=== PATIENT | male | born 1980 | race African-American/Black ===

== ENCOUNTER 2017-07-21 06:23 | Day surgery (SDC) | payer MEDICAID ==
[~2017-07-21] VITALS: Ht 185.4 cm; Wt 102.5 kg
[~2017-07-21 06:23] MED LIST: ALDACTAZIDE 25/25 PO; AMLODIPINE5 MG PO; BENADRYL 50MG C50 MG PO; CLARITIN10 M1 PO; HYDROCHLOR12.5 MG/CA PO; HYZAAR1 TA1 PO; MEDDOSEPAK PO; PEPCID20 MG PO
[2017-07-21 09:32] VITALS: BP 125/73
[2017-07-21] MEDS ORDERED: MOTRIN800 MG PO (09:45)
[2017-07-21] MEDS ORDERED: PERCOCET 5/325M1 TAB PO (09:45)
== END 2017-07-21 10:00 | disposition home or self-care (01) | DRG 352 ==
LOC: ORM 06:23
PROVIDERS: ATTEND Surgery
PROC: 0YU60JZ Supplement Left Inguinal Region with Synthetic Substitute, Open Approach (ICD-10-PCS; principal; 2017-07-21)
PROC: 0VBG0ZZ Excision of Left Spermatic Cord, Open Approach (ICD-10-PCS; 2017-07-21)
DX: K40.30 Unilateral inguinal hernia, with obstruction, without gangrene, not specified as recurrent (principal); N43.3 Hydrocele, unspecified

== ENCOUNTER 2018-12-24 11:22 | Emergency (ER) | payer MEDICAID ==
[~2018-12-24] VITALS: Ht 185.4 cm; Wt 96.4 kg
[~2018-12-24 11:22] MED LIST changes: +MOTRIN800 MG PO; +PERCOCET 5/325M1 TAB PO
[2018-12-24 13:20] VITALS: BP 129/74
== END 2018-12-24 13:20 | disposition home or self-care (01) ==
LOC: ED 11:22
DX: S60.211A Contusion of right wrist, initial encounter (principal); F84.0 Autistic disorder; I10 Essential (primary) hypertension; W22.8XXA Striking against or struck by other objects, initial encounter; Y93.11 Activity, swimming; Y92.833 Campsite as the place of occurrence of the external cause

== ENCOUNTER 2020-03-18 07:24 | Emergency (ER) | payer MEDICAID ==
[~2020-03-18] VITALS: Ht 185.4 cm; Wt 86.4 kg
[2020-03-18 09:20] VITALS: BP 113/85
== END 2020-03-18 09:20 | disposition home or self-care (01) ==
LOC: ED 07:24
DX: S00.83XA Contusion of other part of head, initial encounter (principal); I10 Essential (primary) hypertension; F84.0 Autistic disorder; W22.09XA Striking against other stationary object, initial encounter; Y92.009 Unspecified place in unspecified non-institutional (private) residence as the place of occurrence of the external cause; Z20.828 Contact with and (suspected) exposure to other viral communicable diseases

== ENCOUNTER 2021-10-09 10:01 | Emergency (ER) | payer MEDICAID ==
[~2021-10-09] VITALS: Ht 185.4 cm; Wt 95.2 kg
[2021-10-09 10:30] VITALS: BP 152/101
[2021-10-09 10:39] LABS: HEMATOCRIT 42.9 % (39.0-50.0); HEMOGLOBIN 13.6 g/dl (14.0-18.0); IMMATURE GRANULOCYTES 0.7 % (0.0-5.0); MEAN CELL VOLUME 92.3 fL CALC (80.0-100.0); MEAN CORPUSCULAR HGB 29.2 pG CALC (26.0-32.0); MEAN CORPUSCULAR HGB CONC 31.7 g/dL CAL (32.0-36.0); NEUT# 2.57 thou/uL (1.82-7.42); RED BLOOD COUNT 4.65 mill/uL (4.70-6.10); RED CELL DISTRI WIDTH 11.8 % (11.5-15.5)
[2021-10-09 10:57] LABS: LIPASE 277 u/l (23-300)
[2021-10-09 10:59] LABS: D-DIMER 0.31 mg/L (0.19-0.60)
[2021-10-09 11:00] VITALS: BP 145/99
[2021-10-09 11:03] LABS: ACT PARTIAL THROMBO TIME 21.5 SECONDS (20.0-32.5); PROTHROMBIN TIME 10.1 SECONDS (9.0-12.5)
[2021-10-09 11:48] VITALS: BP 141/85
== END 2021-10-09 11:58 | disposition home or self-care (01) ==
LOC: ED 10:01
PROVIDERS: Internal Medicine
DX: R07.9 Chest pain, unspecified (principal); I10 Essential (primary) hypertension; F84.0 Autistic disorder